=== PATIENT | male | born 1975 | race Caucasian/White ===

== ENCOUNTER 2019-07-08 09:04 | Emergency (ER) | payer OTHER, MEDICAID, SELFPAY ==
[2019-07-08 09:11] VITALS: BP 129/90; PULSE 67; RESP 16; TEMP 36.5; O2SAT 97; BMI 23.6
--- NOTE | 2019-07-08 09:16 | ED.NECK ---
HPI - Neck Pain/Injury General Chief Complaint: Neck Pain/Injury Stated Complaint: Neck hurts down shoulder down arms Time Seen by Provider: 07/08/19 09:08 Source: patient Mode of arrival: Ambulatory Limitations: no limitations History of Present Illness HPI Narrative: 44-year-old male here for evaluation of right-sided neck/shoulder pain. He states that it has been hurting for the past couple weeks. He occasionally has been using Naprosyn for his symptoms with out any improvement. There was no specific trauma. He states that it hurts most when he turns his head to the right. No tingling down into his arm. He states that stops at his right shoulder. Has never had anything like this in the past. Related Data Previous Rx's Medication Instructions Recorded cyclobenzaprine 10 mg PO TID PRN #12 tab 07/08/19 Review of Systems Constitutional Constitutional: Denies fever(s) and Denies headache(s) ENT Ears, Nose, Mouth, and Throat: Denies headache(s) and Reports neck pain Cardiovascular Cardiovascular: Denies chest pain and Denies dyspnea Respiratory Respiratory: Denies dyspnea Gastrointestinal Gastrointestinal: Denies abdominal pain Musculoskeletal Musculoskeletal: Reports neck pain and Denies tingling Integumentary/Breasts Skin/Breast: Denies rash Neurologic Neurologic: Denies headache(s), Denies tingling and Denies paresthesias Hematologic/Lymphatic Hematologic/Lymphatic: Denies easy bleeding and Denies easy bruising Patient History Medical History Patient denies medical problems (Acute) Social History Smoking Status: Current every day smoker Smoking Status: Current every day smoker tobacco type: cigarettes alcohol intake frequency: holidays/special occasions only Substance Use Type: does not use Exam Initial Vital Signs Initial Vital Signs: Vital Signs Temperature 97.7 F 07/08/19 09:11 Pulse Rate 67 07/08/19 09:11 Respiratory Rate 16 07/08/19 09:11 Blood Pressure 129/90 07/08/19 09:11 Pulse Oximetry 97 07/08/19 09:11 Const General: cooperative, comfortable and well developed Limitations: mental status not altered HENMT Head: normal to inspection and normocephalic Resp Effort & Inspection: normal respiratory effort Back/Spine/Pelvis Cervical Spine: cervical muscular tenderness, pain with cervical ROM (Right paraspinal), No cervical spasm and No cervical spinal tenderness Skin Lesions: no lesions Rashes: no rashes Neuro General: alert and awake Cognition: normal cognition Speech: speech normal Extrem General: normal to inspection and capillary refill normal Course Vital Signs Vital signs: Vital Signs - 8 hr 07/08/19 09:11 Temperature 97.7 F Pulse Rate 67 Respiratory Rate 16 Blood Pressure 129/90 Pulse Oximetry 97 MDM - Neck Pain/Injury MDM Narrative Medical decision making narrative: Patient has tenderness to palpation along the right sided trapezius region. This pain seems to be at its maximum when he is turning his head to the right which would correspond to contraction this muscle. The right-sided trapezius does feel more full compared the left. He has no specific trigger point that would be amenable to a trigger point injection. Low suspicion for fracture. Will hold on x-rays. Provided reassurance to the patient. We did discuss the use of regular anti-inflammatories. Will send home with muscle relaxers. Will have him contact his primary doctor to discuss further potential workup to include physical therapy or MRI if needed. He expressed understanding and agreement. Discharge Plan Departure Patient Disposition: Home Clinical Impression: Strain of neck muscle Qualifiers: Encounter type: initial encounter Qualified Code(s): S16.1XXA - Strain of muscle, fascia and tendon at neck level, initial encounter Instructions: DI for Cervical Muscle Strain Activity Restrictions/Additional Instructions: Recommend that you continue your Naprosyn on a regular basis as directed on the bottle. I also recommend that you take this with food or other antacids to protect her stomach from potential complications this medication. Use the muscle relaxers as needed and as directed. I do recommend you contact her primary provider to discuss further workup to include potential referral to see physical therapy and/or an MRI. You have no restrictions on your activities. I do recommend that you stay as active as possible. You can also do light stretching and heat/ice as needed. Prescriptions: New cyclobenzaprine 10 mg tablet 10 mg PO TID PRN (Reason: muscle spasm) Qty: 12 RF: 0
[2019-07-08] MEDS: KETOROLAC 60 MG/2 ML VIAL 30 MG IM (09:31)
== END 2019-07-08 09:34 | disposition home or self-care (01) ==
PROVIDERS: Emergency Provider Emergency Medicine
DX: S16.1XXA Strain of muscle, fascia and tendon at neck level, initial encounter (principal)
CPT/HCPCS: 96372; 99283; J1885